=== PATIENT | male | born 1965 | race Caucasian/White ===

== ENCOUNTER 2025-01-28 16:36 | Emergency (ER) | payer MEDICARE, SELFPAY ==
--- NOTE | ~2025-01-28 | XR_ITS ---
CLINICAL HISTORY: chest pain Chest Radiographs, 2 views Comparison: None available Findings: No cardiomegaly. Normal mediastinal contours. No pneumothorax. No opacity. No pleural effusion. Postsurgical change of the gastroesophageal junction. No acute fracture. Impression: No acute findings. This document has been electronically signed by: Anay De Jesus MD on 01/28/2025 17:56:31
--- NOTE | 2025-01-28 16:39 | ECG_ITS ---
Test Reason : CP Blood Pressure : */* mmHG Vent. Rate : 67 BPM Atrial Rate : 67 BPM P-R Int : 172 ms QRS Dur : 76 ms QT Int : 378 ms P-R-T Axes : 51 -22 15 degrees QTcB Int : 399 ms Normal sinus rhythm Normal ECG No previous ECGs available Referred By: Josiane Healy Electronically Signed By: SABIHA HAWK
[2025-01-28 16:52] VITALS: BP 125/76; PULSE 75; RESP 18; TEMP 36.6; O2SAT 97; BMI 26.3
--- NOTE | 2025-01-28 16:56 | ED.GENADULT ---
[facility] - General Adult General Chief complaint: Chest Pain Stated complaint: chest pain Time Seen by Provider: 01/28/25 22:52 Source: patient Mode of arrival: ambulatory Limitations: no limitations History of Present Illness ED Provider: Dr. Velásquez [facility] narrative: This is a 60-year-old male history of testosterone usage presented hospital today for evaluation of left-sided chest pain. Patient stated that this has been going for the past couple of days. He has been complaining of intermittent sharp pain that is reproducible on the left side of his chest. Patient denies any shortness of breath denies any recent travel. No leg swelling. Patient denies any pleuritic aspect to this chest pain. He stated that it occurred spontaneously. Related Data Allergies Allergy/AdvReac Type Severity Reaction Status Date / Time No Known Allergies Allergy Verified 01/28/25 16:53 Review of Systems Review of Systems: Pertinent review of systems as mentioned in [facility]. All other system otherwise negative. [facility] Past Medical History [facility] Narrative: Medical history as mentioned in [facility] Physical Exam ED Exam Exam: General: Pleasant, no distress, interacting appropriately Head: Normacephalic, atraumatic ENT: oral mucosa moist, neck supple, no tracheal deviation Cardiovascular: regular rate, regular rhythm, no murmurs, rubbing, gallops, left chest pain is reproducible on exam Respiratory: CTAB, no wheeze, rales, rhonchi Gastrointestinal: Soft, non distended, non tender, non guarding Extremities: No limb pain or swelling, no calf tenderness Neurological: Awake and alert, no facial droop noted Skin: Warm and dry Psychiatric: Appropriate mood and thoughts Vital Signs: Vital Signs - 24 hr 01/28/25 16:52 01/28/25 22:22 Temperature 97.8 F 97.8 F Pulse Rate 75 63 Respiratory Rate 18 16 Blood Pressure 125/76 125/73 Pulse Oximetry 97 97 Oxygen Delivery Method Room Air Room Air BMI result Body Mass Index 26.3 Course Course Course Narrative: Rapid medical examination performed in triage by Josiane Healy PA-C. Patient is a 60 year old assigned male at presenting to the emergency department with chest pain. Detailed physical exam and review of systems are deferred to the coordinator cardiopulmonary services. EKG, labs, imaging ordered. Patient placed back in the waiting room pending room availability and results. Medical Decision Making Medical Decision Making [facility] Narrative: This is a 60-year-old male presented hospital today for evaluation of left-sided chest pain that is sharp and intermittent in nature. Patient's EKG did not show any STEMI. Troponin negative x2. Chest x-ray is negative. Patient's CBC did not show any signs of significant abnormality. Patient has a heart score of 1 Patient is low risk heart score. We will plan to discharge patient does time. Low suspicion for PE. He does not appear to be tachypneic or hypoxic. Patient does not complain of any pleuritic chest pain. No sign of DVT. Differential Diagnosis Differential Diagnoses: The differential diagnosis associated with the presentation includes CAD, ACS, PE, pneumonia, costochondritis Lab Data MDM Lab Attestation statement: I reviewed the patient's lab results. 01/28/25 17:16 01/28/25 17:16 Labs: Lab Results 01/28/25 01/28/25 Range/Units 17:16 20:46 WBC 6.4 (4.8-10.8) X10*3/uL RBC 5.77 (4.60-5.80) X10*6/uL Hgb 16.3 (14.0-18.0) g/dl Hct 48.9 (42.0-52.0) % MCV 84.7 (80.0-98.0) fL MCH 28.2 (27.0-33.0) pg MCHC 33.3 (31.0-36.0) g/dl RDW 13.5 (11.0-16.0) % Plt Count 247 (160-400) X10*3/uL MPV 10.5 (9.4-12.4) fL Immature Gran % (Auto) 0.2 (0.0-0.4) % Neut % (Auto) 65.5 (45-73) % Lymph % (Auto) 22.5 (20-40) % [place] % (Auto) 8.3 (2-11) % Eos % (Auto) 2.4 (0-4) % Baso % (Auto) 1.1 (0-2) % Lymph # (Auto) 1.4 (1.2-4.9) X10*3/uL [place] # (Auto) 0.5 (0.1-1.2) X10*3/uL Eos # (Auto) 0.2 (0.0-0.4) X10*3/uL Baso # (Auto) 0.1 (0.0-0.2) X10*3/uL Abs Immat Gran (auto) 0.01 (0.00-0.03) X10*3/uL Absolute Neuts (auto) 4.2 (2.0-8.3) x10*3/uL Absolute Nucleated RBC 0.000 (0.0-0.012) X10*3/uL Nucleated RBC % (auto) 0.0 (0.0-0.2) /100WBC Sodium 139 (135-145) mmol/L Potassium 4.7 (3.3-5.1) mmol/L Chloride 104 (96-108) mmol/L Carbon Dioxide 28 (22-29) mmol/L Anion Gap 12 (12-20) BUN 14 (9-16) mg/dL Creatinine 1.29 (0.5-1.4) mg/dL Estim Creat Clear Calc 60.1 Estimated GFR 57 Random Glucose 95 (60-115) mg/dL Calcium 9.1 (8.4-10.2) mg/dL Magnesium 2.2 (1.6-2.6) mg/dL Total Bilirubin 0.9 (0.0-1.0) mg/dL AST 24 (5-37) U/L ALT 36 (0-40) U/L Alkaline Phosphatase 76 (39-117) U/L Troponin I High Sens < 2.7 < 2.7 (<3.5-35.0) ng/L NT-Pro-B Natriuret Pep 40.2 (<300) pg/mL Total Protein 7.6 (6.5-8.0) g/dL Albumin 4.5 (3.5-5.0) g/dL Independent Interpretation I performed an independent interpretation of an: EKG and Plain X-Ray Radiology Impression Discussion of test interpretation with radiology: I have reviewed the radiologist's reading. Scores Heart Score History: -0- slightly suspicious ECG: -0- normal Age: -1- >45 - <65 Risk factory: -0- no risk factors known Troponin: -0- < or = normal limit Score: 1 Risk: 1.7% Discharge Plan Discharge Clinical Impression: Atypical chest pain Patient Disposition: Home, Self-Care Instructions: Chest Pain (ED) Additional Instructions: Follow up with your primary care doctor. Ask about a stress test. Your cardiac enzymes are negative. EKG did not show any signs of major heart attack. Print Language: Yoruba
[2025-01-28 17:19] LABS: MANUAL DIFF FLAG NO
[2025-01-28 17:28] LABS: Hematocrit 48.9 % (42.0-52.0); Hemoglobin 16.3 g/dl (14.0-18.0); Imm Gran Abs Auto 0.01 X10*3/uL (0.00-0.03); Imm Gran Pct Auto 0.2 % (0.0-0.4); Lymphocytes Absolute Auto 1.4 X10*3/uL (1.2-4.9); Mean Corpuscular HGB Conc 33.3 g/dl (31.0-36.0); Mean Corpuscular Hemoglobin 28.2 pg (27.0-33.0); Mean Corpuscular Volume 84.7 fL (80.0-98.0); NRBC Abs Auto 0.000 X10*3/uL (0.0-0.012); NRBC Pct Auto 0.0 /100WBC (0.0-0.2); Platelet Count 247 X10*3/uL (160-400); Red Blood Count 5.77 X10*6/uL (4.60-5.80); White Blood Count 6.4 X10*3/uL (4.8-10.8)
[2025-01-28 17:36] LABS: Alanine Aminotransferase 36 U/L (0-40); Albumin Level 4.5 g/dL (3.5-5.0); Alkaline Phosphatase 76 U/L (39-117); Anion Gap 12 (12-20); Aspartate Amino Transferase 24 U/L (5-37); Blood Urea Nitrogen 14 mg/dL (9-16); Calcium 9.1 mg/dL (8.4-10.2); Carbon Dioxide 28 mmol/L (22-29); Chloride 104 mmol/L (96-108); Creatinine Clr Calc Pharmacy 60.1; Estimated Glomerular Filt Rate 57; Magnesium 2.2 mg/dL (1.6-2.6); Potassium 4.7 mmol/L (3.3-5.1); Sodium 139 mmol/L (135-145); Total Protein 7.6 g/dL (6.5-8.0)
[2025-01-28 17:43] LABS: NT Pro B Type Natriuretic Pept 40.2 pg/mL (<300)
[2025-01-28 17:44] LABS: Troponin-I High Sensitivity < 2.7 ng/L (<3.5-35.0)
--- NOTE | 2025-01-28 20:28 | PC.NURSE ---
Pt knocked on triage door stating he's been waiting for 4 hours. T/w apologized for delay, informed pt. dept is busy, should hopefully be seen soon. Pt. observed to walk out of dept.
[2025-01-28 21:17] LABS: Troponin-I High Sensitivity < 2.7 ng/L (<3.5-35.0)
[2025-01-28 22:22] VITALS: BP 125/73; PULSE 63; RESP 16; TEMP 36.6; O2SAT 97
--- OUTSIDE RECORDS SUMMARY | 2025-01-28 22:51 | XMS_ITS | Patient Health Record ---
Author Organization [facility] Address [address] [place] [address] Care Team Providers Care Irish Moss Operator Name Role Phone Hank Tay Unavailable [phone] Reason For Referral No Information Plan Of Treatment No Information
[2025-01-29 00:18] VITALS: BP 120/76; PULSE 56; RESP 16; TEMP 36.9; O2SAT 98
[2025-01-29 00:25] VITALS: BP 120/76; PULSE 56; RESP 16; TEMP 36.9; O2SAT 98
== END 2025-01-29 00:26 | disposition home or self-care (01) ==
PROVIDERS: Physician Assistant Medical; Emergency Provider Student in an Organized Health Care Education/Training Program; PCP Student in an Organized Health Care Education/Training Program
DX: R07.89 Other chest pain (principal); R06.02 Shortness of breath; Z79.899 Other long term (current) drug therapy
CPT/HCPCS: 36415; 71046; 80053; 83735; 83880; 84484; 85025; 93005; 99283; 99284

== ENCOUNTER → 2025-01-28 16:39 | Outpatient (BNV) | payer MEDICARE, MEDICAID, SELFPAY | PROVIDERS: Emergency Provider Student in an Organized Health Care Education/Training Program; PCP Student in an Organized Health Care Education/Training Program; Visit Provider Internal Medicine | DX: R07.89 Other chest pain (principal) | CPT/HCPCS: 93010 ==

== ENCOUNTER → 2025-01-28 16:57 | Outpatient (BNV) | payer MEDICARE, MEDICAID, SELFPAY | PROVIDERS: PCP Student in an Organized Health Care Education/Training Program; Visit Provider Radiology Diagnostic Radiology | DX: R07.89 Other chest pain (principal) | CPT/HCPCS: 71046 ==